=== PATIENT | female | born 2000 | race African-American/Black ===

== ENCOUNTER 2020-01-18 22:37 | Outpatient (CLI) | payer SELFPAY ==
[~2020-01-18] VITALS: Ht 175.3 cm; Wt 101.4 kg
[2020-01-18 23:05] VITALS: BP 119/69; PULSE 111; TEMP 98.4
--- NOTE | 2020-01-18 23:05 | NUR ---
2305 G2 L0 36.3 WEEK GEST TO LR4 WITH C/O LOW ABD PAIN AND PAIN UP SIDES FOR LAST TWO DAYS. IS NOT CONSTANT. COMES AND GOES. HAS NO RECORDS. STATES MOVED HER A MONTH AGO FROM [place] AND WAS SEEING A DOCTOR THERE, BUT HAS NOT MADE AN APPONTMENT TO SEE AN OB DR HERE YET. EFM ON. SVE /-2. NO UTERINE TIGHTENING NOTED WITH C/O LOW ABD PAIN. ASSESSMENT DONE.
[2020-01-18 23:06] VITALS: BP 119/69; PULSE 111; TEMP 98.4
--- NOTE | 2020-01-18 23:25 | NUR ---
2325 DR COLLIER NOTIFIED AND REPORT GIVEN. NEW ORDERS RECEIVED. 2335 CCUA OBTAINED AND TO LAB. TYLENOL ES 1000MG PO GIVEN.
[2020-01-18 23:43] LABS: COLLECTION METHOD CLEAN CATCH
[2020-01-18 23:50] LABS: MUCOUS Present /lpf; PH 6 (5-8); SQUAMOUS EPITHELIAL 0-2 /hpf; URINE APPEARANCE Hazy; URINE BACTERIA Rare /hpf; URINE BILIRUBIN Negative (NEGATIVE); URINE BLOOD Negative (NEGATIVE); URINE COLOR Yellow; URINE GLUCOSE Negative (NEGATIVE); URINE KETONE Negative (NEGATIVE); URINE LEUKOCYTE ESTERASE Negative (NEGATIVE); URINE NITRATE Negative (NEGATIVE); URINE PROTEIN(semi-quant) Negative (NEGATIVE); URINE RBC 0-2 /hpf; URINE WBC 0-2 /hpf
--- NOTE | 2020-01-19 | NUR ---
0000 [address] WITH NO CHANGE. DR COLLIER NOTIFED AND UA RESULTS GIVEN. MAY GO HOME 0020 HOME WITH INSTRUCTIONS.
== END 2020-01-19 00:20 | disposition home or self-care (01) ==
LOC: COL.ER 22:37 → LDRO 22:37 → EDSTATUS 22:51 → LDR 22:57 → LDRO 01-19 00:20
PROVIDERS: Obstetrics & Gynecology
DX: O26.893 Other specified pregnancy related conditions, third trimester (principal); R10.30 Lower abdominal pain, unspecified; Z3A.36 36 weeks gestation of pregnancy; F12.90 Cannabis use, unspecified, uncomplicated
CPT/HCPCS: OP